=== PATIENT | female | born 1995 | race Caucasian/White ===

== ENCOUNTER 2021-06-17 03:25 | Inpatient (IN) | payer OTHER ==
[2021-06-17] MEDS ORDERED: AMPICILLIN SODIUM 2 GM VIAL ONE (04:10)
[2021-06-17] MEDS ORDERED: DEXTROSE 5%-LACTATED RINGERS 1,000 ML IV SCH (04:30)
[2021-06-17] MEDS ORDERED: AMPICILLIN - 2 GM in SODIUM CHLORIDE 100 ML IVPB ONE (04:30)
[2021-06-17 04:59] LABS: BASO % 0.4 % (0-2.0); EOS % 0.8 % (0-4.5); HEMATOCRIT 35.4 % (32.4-45.2); HEMOGLOBIN 11.9 GM/dL (10.7-15.3); LYMPH % 31.7 % (8-40); MCH 29.2 pg (25.7-33.7); MCHC 33.7 g/dl (32.0-36.0); MEAN CELL VOLUME 86.7 fl (80-96); MONO % 6.8 % (3.8-10.2); NEUT % 60.3 % (42.8-82.8); PLATELET COUNT 128 10^3/uL (134-434); RBC 4.08 M/mm3 (3.60-5.2); RDW 18.7 % (11.6-15.6); WHITE BLOOD COUNT 6.8 K/mm3 (4.0-10.0)
[2021-06-17 05:32] LABS: CALCIUM 8.7 mg/dL (8.5-10.1)
[2021-06-17 05:36] LABS: CREATININE 0.5 mg/dL (0.55-1.3)
[2021-06-17 06:06] LABS: ACTIVATED PTT 33.6 SECONDS (25.2-36.5); INR 0.89 (0.83-1.09); PROTHROMBIN TIME (PATIENT) 10.2 SEC (9.7-13.0)
[2021-06-17] MEDS ORDERED: AMPICILLIN SODIUM 1 GM VIAL ONE (07:31)
[2021-06-17] MEDS ORDERED: SODIUM CHLORIDE 100 ML IVPB ONE (07:32)
[2021-06-17] MEDS ORDERED: ELECTROLYTE-148 SOLN 500 ML IV ONE (07:55)
[2021-06-17] MEDS ORDERED: ELECTROLYTE-148 SOLN 1,000 ML IV SCH (08:25)
[2021-06-17] MEDS ORDERED: AMPICILLIN - 1 GM in SODIUM CHLORIDE 100 ML IVPB SCH (08:30)
[2021-06-17] MEDS ORDERED: OXYTOCIN 20 UNITS in 0.9% NS 20 UNIT/1,000 ML INFUS.BAG IV ONE ×2 (08:36→09:59)
[2021-06-17] MEDS ORDERED: ACETAMINOPHEN INJECTION 100 ML IVPB ONE (08:36)
[2021-06-17] MEDS ORDERED: morphine SULFATE/PF 1 MG/2 ML (2cc Syringe - QUVA) ONE (08:39)
[2021-06-17] MEDS ORDERED: ceFAZolin SODIUM 1 GM VIAL ONE (08:39)
[2021-06-17] MEDS ORDERED: SODIUM CHLORIDE 0.9% P/F 10 ML VIAL IJ ONE (08:40)
[2021-06-17] MEDS ORDERED: PHENYLEPHRINE HCL 10 MG/1 ML SINGLE DOSE VIAL ONE (09:00)
[2021-06-17] MEDS ORDERED: CITRIC ACID/SODIUM CITRATE 30 ML UNIT-DOSE CUP PO ONE (09:15)
[2021-06-17] MEDS ORDERED: ONDANSETRON 4 MG/2 ML VIAL ONE (09:19)
[2021-06-17] MEDS ORDERED: ACETAMINOPHEN 325 MG TABLET (FP) PO PRN (10:15)
[2021-06-17] MEDS ORDERED: METHYLERGONOVINE MALEATE 0.2 MG/1 ML AMP IM PRN (10:15)
[2021-06-17] MEDS ORDERED: KETOROLAC TROMETHAMINE 30 MG/1 ML VIAL IVPUSH ONE (10:30)
[2021-06-17] MEDS ORDERED: KETOROLAC TROMETHAMINE 15 MG/ML VIAL IVPB ONE (10:30)
[2021-06-17] MEDS: OXYTOCIN 20 UNITS in 0.9% NS 20 UNIT/1,000 ML INFUS.BAG IV SCH ×2 (11:06→18:40)
[2021-06-17 12:28] LABS: CORD BASE EXCESS -7.4 mmol/L (0-2); CORD HCO3 18.8 mmHg (20-29); CORD PCO2 40.4 mmHg (30-78); CORD pH 7.285 (7.14-7.44)
[2021-06-17 12:29] LABS: CORD BASE EXCESS -5.7 mmol/L (0-2); CORD HCO3 18.8 mmHg (20-29); CORD PCO2 34.2 mmHg (30-78); CORD pH 7.359 (7.14-7.44)
[2021-06-17] MEDS ORDERED: oxyCODONE HCL 5 MG TABLET PO PRN ×2 (22:15)
[2021-06-18] MEDS: SIMETHICONE 80 MG TAB.CHEW (FP) PO PRN ×4 (00:47→17:25)
[2021-06-18] MEDS: IBUPROFEN 600 MG TABLET (FP) PO PRN ×4 (00:47→17:25)
[2021-06-18 07:16] LABS: BASO % 0.1 % (0-2.0); EOS % 0.2 % (0-4.5); HEMATOCRIT 24.3 % (32.4-45.2); HEMOGLOBIN 8.1 GM/dL (10.7-15.3); LYMPH % 15.9 % (8-40); MCH 29.1 pg (25.7-33.7); MCHC 33.3 g/dl (32.0-36.0); MEAN CELL VOLUME 87.2 fl (80-96); MEAN PLT VOLUME 11.4 fl (7.5-11.1); MONO % 5.3 % (3.8-10.2); NEUT % 78.5 % (42.8-82.8); PLATELET COUNT 104 10^3/uL (134-434); RBC 2.79 M/mm3 (3.60-5.2); RDW 18.9 % (11.6-15.6); WHITE BLOOD COUNT 9.3 K/mm3 (4.0-10.0)
[2021-06-18] MEDS ORDERED: BISACODYL 10 MG SUPP.RECT RC PRN (10:15)
[2021-06-19 09:03] LABS: BASO % 0.2 % (0-2.0); EOS % 0.6 % (0-4.5); HEMATOCRIT 26.5 % (32.4-45.2); HEMOGLOBIN 8.8 GM/dL (10.7-15.3); LYMPH % 9.7 % (8-40); MCH 29.2 pg (25.7-33.7); MCHC 33.4 g/dl (32.0-36.0); MEAN CELL VOLUME 87.7 fl (80-96); MEAN PLT VOLUME 10.1 fl (7.5-11.1); MONO % 4.8 % (3.8-10.2); NEUT % 84.7 % (42.8-82.8); PLATELET COUNT 127 10^3/uL (134-434); RBC 3.02 M/mm3 (3.60-5.2); RDW 18.7 % (11.6-15.6); WHITE BLOOD COUNT 10.6 K/mm3 (4.0-10.0)
[2021-06-19] MEDS: IBUPROFEN 600 MG TABLET (FP) PO PRN (12:18)
[2021-06-20 10:10] VITALS: BP 105/70; PULSE 95; TEMP 98.8
[2021-06-20 13:41] LABS: BASO % 0.2 % (0-2.0); EOS % 1.4 % (0-4.5); HEMATOCRIT 27.1 % (32.4-45.2); HEMOGLOBIN 8.9 GM/dL (10.7-15.3); LYMPH % 12.8 % (8-40); MCH 28.9 pg (25.7-33.7); MEAN CELL VOLUME 87.6 fl (80-96); MEAN PLT VOLUME 9.5 fl (7.5-11.1); NEUT % 79.6 % (42.8-82.8); PLATELET COUNT 187 10^3/uL (134-434); RDW 18.7 % (11.6-15.6); WHITE BLOOD COUNT 8.4 K/mm3 (4.0-10.0)
== END 2021-06-20 13:25 | disposition home or self-care (01) | DRG 540 ==
LOC: JDEL 03:25 → JLDR 04:00 → J3W 11:39
PROVIDERS: ADMIT Internal Medicine; ATTEND Internal Medicine
PROC: 10D00Z1 Extraction of Products of Conception, Low, Open Approach (ICD-10-PCS; principal; 2021-06-17)
DX: O42.02 Full-term premature rupture of membranes, onset of labor within 24 hours of rupture (principal); O32.8XX0 Maternal care for other malpresentation of fetus, not applicable or unspecified; O77.0 Labor and delivery complicated by meconium in amniotic fluid; Z3A.39 39 weeks gestation of pregnancy; Z37.0 Single live birth
CPT/HCPCS: 36415; 36600; 80048; 82803; 85025; 85610; 85730; 86780; 86850; 86900; 86901; 88307-TC; C9803-CS; U0003; U0005

== ENCOUNTER 2022-09-08 15:15 | Emergency (ER) | payer OTHER ==
[2022-09-08 15:19] VITALS: BP 131/77; PULSE 71; RESP 19; TEMP 98.7; BMI 26.6
[2022-09-08] MEDS ORDERED: DIPHTH,PERTUSS(ACELL),TET 0.5 ML DISP.SYRIN IM ONE ×2 (15:47→15:48)
== END 2022-09-08 16:42 | disposition home or self-care (01) ==
LOC: JERFT 15:15
PROC: 0HQGXZZ Repair Left Hand Skin, External Approach (ICD-10-PCS; principal; 2022-09-08)
PROC: 3E0234Z Introduction of Serum, Toxoid and Vaccine into Muscle, Percutaneous Approach (ICD-10-PCS; 2022-09-08)
DX: S61.211A Laceration without foreign body of left index finger without damage to nail, initial encounter (principal); W26.0XXA Contact with knife, initial encounter
CPT/HCPCS: 12001-25; 90471; 90715; 99282-25